=== PATIENT | female | born 1975 | race Caucasian/White ===

== ENCOUNTER 2016-11-02 00:15 | Emergency (ER) | payer OTHER ==
[~2016-11-02] VITALS: Ht 165.1 cm; Wt 79.4 kg
[2016-11-02 00:21] VITALS: BP 148/84
--- NOTE | 2016-11-02 00:42 | NUR ---
PT TAKEN TO BED 7
--- NOTE | 2016-11-02 00:44 | NUR ---
41/F CAME IN WITH COMPLAINT OF NEEDLE STUCK ON HER LEFT ANTICUBITAL AN HOUR AGO. SHE SAID SHE JUST WANT TO MAKE SURE THE NEEDLE IS NOT INSIDE. PATIENT STATES PAIN OF 0/10 AT THIS TIME; VSS; PATIENT POSITIONED FOR COMFORT; HOB ELEVATED; BEDRAILS UP X2; BED DOWN. ER MD MADE AWARE OF PT STATUS.
--- NOTE | 2016-11-02 01:11 | NUR ---
Dr. Dumont evaluating patient at bedside.
--- NOTE | 2016-11-02 01:22 | NUR ---
X-Ray at bedside.
--- NOTE | 2016-11-02 01:50 | NUR ---
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 I TOLD HER WE CAN CALL SECURITY TO CHECK HER FRIEND IN THE CAR AND LET HIM COME INSIDE. PT AGREED. PT RESTING COMFORTABLY ON BED AT THIS TIME.
[2016-11-02 01:51] LABS: BASOPHILS # (AUTO) 0.3 K/uL (0.00-0.22); BASOPHILS % (AUTO) 1.8 % (0.0-2.0); EOSINOPHILS # (AUTO) 0.3 K/uL (0-0.4); EOSINOPHILS % (AUTO) 1.7 % (0.0-4.0); HEMATOCRIT 39.9 % (36-48); HEMOGLOBIN 12.7 g/dL (12.0-16.0); LYMPHOCYTES % (AUTO) 12.3 % (20.5-51.1); MEAN CORPUSCULAR HEMOGLOBIN 26 pg (27-31); MEAN CORPUSCULAR HGB CONC 32 g/dL (33-37); MEAN CORPUSCULAR VOLUME 82 fL (80-94); MONOCYTES # (AUTO) 0.6 K/uL (0.8-1.0); MONOCYTES % (AUTO) 3.9 % (1.7-9.3); NEUTROPHILS % (AUTO) 80.3 % (42.2-75.2); PLATELET COUNT (AUTO) 379 K/uL (140-450); RED BLOOD CELL COUNT(AUTO) 4.86 MIL/uL (4.20-5.40); RED CELL DISTRIBUTION WIDTH 15.2 % (11.6-13.7)
--- NOTE | 2016-11-02 01:55 | NUR ---
Alessandro page in [facility] - 11/02/16 at 0416 by KENYETTA PT WAS TALKING ON THE PHONE WITH SOMEBODY. THEN ALL OF A SUDDEN SHE SAID SHE IS LEAVING.
[2016-11-02 02:05] LABS: WHITE BLOOD COUNT (AUTO) 16.2 K/uL (4.8-10.8)
--- NOTE | 2016-11-02 02:05 | NUR ---
PT WAS TALKING WITH SOMEBODY ON THE PHONE. AND THEN ALL OF SUDDEN SHE GOT OUT OF BED AND SAID SHE IS LEAVING.
[2016-11-02 02:06] VITALS: BP 118/75
--- NOTE | 2016-11-02 02:06 | NUR ---
Patient does not wish to proceed with medical care recommended by DR. SWENSON. Patient given information related to possible complications, up to and including , which could occur as a result of leaving hospital at this time. Patient verbalizes understanding of risks involved leaving against medical advice. Patient has signed AMA form.
[2016-11-02 02:08] LABS: ALBUMIN 3.7 g/dL (3.4-5.0); ANION GAP 12.4 (8-16); CARBON DIOXIDE 28.7 mmol/L (21-32); CREATININE 0.8 mg/dL (0.6-1.3); POTASSIUM 4.1 mmol/L (3.5-5.1); TOTAL BILIRUBIN 0.1 mg/dL (0.0-1.0); TOTAL PROTEIN, SERUM 7.7 g/dL (6.4-8.2)
== END 2016-11-02 02:06 | disposition left against medical advice (07) ==
LOC: MED 00:15
DX: S50.852A Superficial foreign body of left forearm, initial encounter (principal); F17.200 Nicotine dependence, unspecified, uncomplicated; Z88.8 Allergy status to other drugs, medicaments and biological substances; X58.XXXA Exposure to other specified factors, initial encounter; Y93.89 Activity, other specified; Y92.89 Other specified places as the place of occurrence of the external cause; Y99.8 Other external cause status
CPT/HCPCS: 36415; 73090; 80053; 85025; 99285; Q0092

== ENCOUNTER 2016-11-02 09:39 | Emergency (ER) | payer OTHER ==
[~2016-11-02] VITALS: Ht 165.1 cm; Wt 77.1 kg
[2016-11-02 09:55] VITALS: BP 145/73
--- NOTE | 2016-11-02 10:28 | NUR ---
Patient ambulated to bed 03.
--- NOTE | 2016-11-02 10:29 | NUR ---
41F BIB SELF C/O LEFT ARM PAIN, ACHING, NON-RADIATING, 7/10 X YESTERDAY; PT STATES " I HAVE A NEEDLE STUCK IN MY ARM" S/P DRUG USE; REDNESS NOTED TO NEEDLE INSERTION SITE BELOW LEFT A/C; LEFT CAP REFILL < 3 SECONDS, LEFT RADIAL PULSE PALPABLE, NO LOSS OF SENSATION TO LEFT ARM AT THIS TIME; PT A&OX4, PERRLA, BL LUNG SOUNDS CLEAR, RR EVEN/UNLABORED, SKIN IS WARM/DRY AT THIS TIME; STEADY GAIT; PT STATES WAS IN ER LAST NIGHT FOR SAME ISSUE, BUT HAD TO LEAVE; PT RESTING IN BED W/ HOB ELEVATED AND IN LOWEST POSITION; POSITIONED FOR COMFORT; ER MD MADE AWARE OF STATUS. WILL CONTINUE TO MONITOR.
--- NOTE | 2016-11-02 10:30 | NUR ---
Dr. Klein evaluating patient at bedside.
--- NOTE | 2016-11-02 10:49 | NUR ---
CD and Read of XRAY given to patient. Authorization for disclosure signed.
[2016-11-02 10:55] VITALS: BP 129/82
== END 2016-11-02 10:55 | disposition home or self-care (01) ==
LOC: MED 09:39
DX: Z09 Encounter for follow-up examination after completed treatment for conditions other than malignant neoplasm (principal); M79.5 Residual foreign body in soft tissue; R03.0 Elevated blood-pressure reading, without diagnosis of hypertension